=== PATIENT | female | born 1980 | race Two or more races ===

== ENCOUNTER 2021-07-31 11:56 | Emergency (ER) | payer OTHER ==
[~2021-07-31] VITALS: Ht 154.9 cm; Wt 53.1 kg
[2021-07-31 12:54] VITALS: BP 142/90
[2021-07-31] MEDS ORDERED: LIDOCAINE 1% HCL (LOCAL ANESTH.) INJ 20ML MDV IJ ONE (14:00)
[2021-07-31] MEDS ORDERED: cefTRIAXone SOD 1,000 MG VL IM ONE (14:15)
[2021-07-31] MEDS ORDERED: SULF400T11 PO (14:22)
[2021-07-31] MEDS ORDERED: NAPR500T31 PO (14:22)
== END 2021-07-31 14:42 | disposition home or self-care (01) ==
LOC: ER 11:56
DX: S00.86XA Insect bite (nonvenomous) of other part of head, initial encounter (principal); L02.01 Cutaneous abscess of face; W57.XXXA Bitten or stung by nonvenomous insect and other nonvenomous arthropods, initial encounter; Y93.89 Activity, other specified; Y92.89 Other specified places as the place of occurrence of the external cause; Y99.8 Other external cause status
CPT/HCPCS: 10060; 96372; 99283; J0696; J2001

== ENCOUNTER 2021-08-02 07:26 | Emergency (ER) | payer OTHER ==
[~2021-08-02] VITALS: Ht 177.8 cm; Wt 53.1 kg
[~2021-08-02 07:26] MED LIST: NAPR500T31 PO; SULF400T11 PO
[2021-08-02 07:54] VITALS: BP 119/77
== END 2021-08-02 08:29 | disposition home or self-care (01) ==
LOC: ER 07:26
DX: Z48.817 Encounter for surgical aftercare following surgery on the skin and subcutaneous tissue (principal)